=== PATIENT | female | born 1980 | race American Indian/Alaskan Native ===

== ENCOUNTER 2020-05-16 07:59 | Emergency (ER) | payer OTHER ==
[2020-05-16] MEDS ORDERED: SODIUM CHLORIDE 0.9% 1000 ML 1,000 ML ONE (08:43)
[2020-05-16] MEDS ORDERED: ONDANSETRON 4 MG/2 ML INJ ONE (08:43)
[2020-05-16] MEDS ORDERED: ONDANSETRON 4 MG/2 ML INJ IV ONE ×2 (09:03→09:07)
[2020-05-16] MEDS ORDERED: SODIUM CHLORIDE 0.9% 1000 ML 1,000 ML IV ONE (09:03)
[2020-05-16 10:00] LABS: Basophils % (Auto) 0.2 % (0.0-1.8); Eosinophils % (Auto) 0.1 % (0.0-4.3); Hematocrit 42.4 % (30.3-42.9); Lymphocytes # (Auto) 0.7 K/mm3 (1.2-5.4); Lymphocytes % (Auto) 10.2 % (13.4-35.0); Mean Corpuscular HGB Conc 33 % (30-34); Mean Corpuscular Volume 85 fl (79-97); Monocytes # (Auto) 0.7 K/mm3 (0.0-0.8); Monocytes % (Auto) 9.2 % (0.0-7.3); Platelet Count 218 K/mm3 (140-440); Red Blood Count 4.97 M/mm3 (3.65-5.03); Red Cell Distribution Width 15.1 % (13.2-15.2)
[2020-05-16 10:13] LABS: INR 1.05 (0.87-1.13)
[2020-05-16 10:39] LABS: Alanine Aminotransferase 13 units/L (7-56); Albumin 3.9 g/dL (3.9-5); BUN/Creatinine Ratio 10; Blood Urea Nitrogen 9 mg/dL (7-17); Calcium 9.1 mg/dL (8.4-10.2); Hemolysis Index 8
[2020-05-16 10:41] LABS: Bilirubin,Direct < 0.2 mg/dL (0-0.2)
[2020-05-16 11:47] LABS: Amphetamine Screen,Urine Negative; Benzodiazepines Screen,Urine Negative; Cannabinoid Screen,Urine Negative; Cocaine Screen,Urine Negative; Methadone Screen,Urine Negative; Opiate Screen,Urine Negative
[2020-05-16 11:52] LABS: Bacteria,Urine 1+ /HPF (Negative); Bilirubin,Urine NEG (Negative); Blood,Urine SM (Negative); Color,Urine Straw (Yellow); Protein,Urine <15 mg/dL mg/dL (Negative); Urobilinogen,Urine < 2.0 mg/dL (<2.0)
[2020-05-16 12:04] LABS: HCG Qualitative,Urine Negative (Negative); RBC,Urine < 1.0 /HPF (0.0-6.0)
--- NOTE | 2020-05-16 13:51 | Cat Scan Report ---
CT ABDOMEN AND PELVIS WITH CONTRAST INDICATION: Abd pain, hypotensive episode. TECHNIQUE: Axial CT images were obtained through the abdomen and pelvis after 100 cc Omni [address] scans at this location are performed using CT dose reduction for ALARA by means of automated expos ure control. COMPARISON: None available. FINDINGS: LOWER CHEST: Patchy groundglass parenchymal disease is seen within right middle lobe, lingula and bot h lower lobes characteristic for mild COVID bronchopneumonia LIVER: 1.2 cm hemangioma posterior hepatic segment image 51 GALLBLADDER: No significant abnormality. BILE DUCTS: No significant abnormality. PANCREAS: No significant abnormality. SPLEEN: No significant abnormality. ADRENALS: No significant abnormality. RIGHT KIDNEY and URETER: No significant abnormality. LEFT KIDNEY and URETER: No significant abnormality. STOMACH and SMALL BOWEL: No significant abnormality. COLON: No significant abnormality. APPENDIX: Not visualized. No acute inflammatory process PERITONEUM: No free fluid. No free air. No fluid collection. LYMPH NODES: No significant adenopathy. AORTA and ARTERIES: No significant abnormality. IVC and VEINS: No significant abnormality. URINARY BLADDER: No significant abnormality. REPRODUCTIVE ORGANS: Several small uterine fibroids. ADDITIONAL FINDINGS: None. SKELETAL SYSTEM: No significant abnormality. IMPRESSION: 1. Mild COVID bronchopneumonia both lung bases 2. Several small uterine leiomyomas. Signer Name: Fredrick Wallace MD Signed: 05/16/2020 1:47 PM Workstation Name: [id number]
--- NOTE | 2020-05-16 14:09 | Emergency Department Report ---
ED Abdominal Pain HPI - General Chief Complaint: Abdominal Pain Stated Complaint: BODY PAIN, N/V Time Seen by Provider: 05/16/20 08:57 Source: patient Mode of arrival: Wheelchair Limitations: No Limitations - History of Present Illness Initial Comments: This is a 39-year-old female who complains of gastric discomfort and nausea and vomiting. She thinks she does not complain of fever but has not measured her temperature. Her pain was nonradiating and intermittent. At the time of my encounter, she is not complaining of much discomfort. She was hypotensive at the time of arrival. She was given a liter of IV fluid in this readily resolved. She states that she has had normal menses. He does not complain of diarrhea. She drinks minimal alcohol and none recently. She believes that she is dehydrated. She does not complain of any other symptoms. MD Complaint: abdominal pain -: Gradual, hour(s) Location: epigastric Radiation: none Migration to: no migration Severity: moderate Severity scale (0 -10): 0 Quality: aching Consistency: intermittent Improves With: nothing Worsens With: nothing Context: other Associated Symptoms: nausea, vomiting. denies: diarrhea, hematemesis, hematochezia - Related Data Previous Rx's Medication Instructions Recorded Last Taken Type Ondansetron [Zofran Odt] 4 mg PO Q8HR PRN #10 tab.rapdis 05/16/20 Unknown Rx Allergies Allergy/AdvReac Type Severity Reaction Status Date / Time No Known Allergies Allergy Unverified 05/16/20 08:28 ED Review of Systems ROS: Stated complaint: BODY PAIN, N/V Other details as noted in HPI Constitutional: denies: chills, fever (This) Eyes: denies: eye pain, eye discharge, vision change ENT: denies: ear pain, throat pain Respiratory: denies: cough, shortness of breath, wheezing Cardiovascular: denies: chest pain, palpitations Endocrine: no symptoms reported Gastrointestinal: abdominal pain, nausea, vomiting. denies: diarrhea Genitourinary: denies: urgency, dysuria, discharge Musculoskeletal: denies: back pain, joint swelling, arthralgia Skin: denies: rash, lesions Neurological: denies: headache, weakness, paresthesias Psychiatric: denies: anxiety, depression Hematological/Lymphatic: denies: easy bleeding, easy bruising ED Past Medical Hx - Past Medical History Previous Medical History?: Yes Hx Hypertension: Yes - Social History Substance Use Type: None - Medications Home Medications: Home Medications Medication Instructions Recorded Confirmed Last Taken Type Ondansetron [Zofran Odt] 4 mg PO Q8HR PRN #10 tab.rapdis 05/16/20 Unknown Rx ED Physical Exam - General Limitations: No Limitations General appearance: alert, in no apparent distress, obese - Head Head exam: Present: atraumatic, normocephalic - Eye Eye exam: Present: normal appearance - ENT ENT exam: Present: mucous membranes moist - Neck Neck exam: Present: normal inspection - Respiratory Respiratory exam: Present: normal lung sounds bilaterally. Absent: respiratory distress - Cardiovascular Cardiovascular Exam: Present: regular rate, normal rhythm. Absent: systolic murmur, diastolic murmur, rubs, gallop - GI/Abdominal GI/Abdominal exam: Present: soft, normal bowel sounds. Absent: distended, tenderness, guarding, rebound, rigid - Extremities Exam Extremities exam: Present: normal inspection - Back Exam Back exam: Present: normal inspection - Neurological Exam Neurological exam: Present: alert, oriented X3, CN II-XII intact. Absent: refl exes normal - Psychiatric Psychiatric exam: Present: normal affect, normal mood - Skin Skin exam: Present: warm, dry, intact, normal color. Absent: rash ED Course Vital Signs 05/16/20 05/16/20 05/16/20 08:30 09:35 09:46 Temperature 97.3 F L Pulse Rate 89 Respiratory 18 Rate Blood Pressure 94/56 94/56 Blood Pressure 84/49 [Right] O2 Sat by Pulse 98 94 Oximetry 05/16/20 05/16/20 05/16/20 09:47 09:51 10:00 Temperature Pulse Rate 76 Respiratory 20 20 Rate Blood Pressure 106/64 Blood Pressure 94/56 [Right] O2 Sat by Pulse 99 99 100 Oximetry 05/16/20 05/16/20 05/16/20 10:16 10:30 10:46 Temperature Pulse Rate Respiratory Rate Blood Pressure 106/64 94/56 128/80 Blood Pressure [Right] O2 Sat by Pulse 98 99 99 Oximetry - Reevaluation(s) Reevaluation #1: Patient was placed on a bedside commode by nursing staff. She had a normal bowel movement. Thereafter she no longer complained of abdominal discomfort. She was given a liter of IV fluid. Considering her hypotension although she had a benign exam, a CT of the abdomen and pelvis was ordered. This was negative for any abdominal or pelvic pathology but she had lower lobe groundglass opacities consistent with COVID-19. I reexamined the patient again. Her exam was benign her vital signs were stable her pulse oximetry was 99 to 100% on room air. She again verified the complete absence of pulmonary symptoms such as cough, shortness of breath or fever. I did not have the capacity to do a spot Covid test. However, even if positive the patient would not meet criteria for hospitalization. She is advised of the likelihood of Covid infection. She is advised to quarantine. She is advised to follow-up with her primary care physician which she does have or perhaps utilize telemedicine. She is advised of return criteria for COVID-19 infection. 05/16/20 14:11 ED Medical Decision Making - Lab Data Result diagrams: 05/16/20 09:29 05/16/20 09:29 Laboratory Results - last 24 hr 05/16/20 05/16/20 05/16/20 09:29 09:29 09:29 WBC 7.1 RBC 4.97 Hgb 14.0 Hct 42.4 MCV 85 MCH 28 MCHC 33 RDW 15.1 Plt Count 218 Lymph % (Auto) 10.2 L Nelson % (Auto) 9.2 H Eos % (Auto) 0.1 Baso % (Auto) 0.2 Lymph # (Auto) 0.7 L Nelson # (Auto) 0.7 Eos # (Auto) 0.0 Baso # (Auto) 0.0 Seg Neutrophils % 80.3 H Seg Neutrophils # 5.7 PT 13.8 INR 1.05 APTT 34.0 Sodium Potassium Chloride Carbon Dioxide Anion Gap BUN Creatinine Estimated GFR BUN/Creatinine Ratio Glucose Calcium Magnesium Total Bilirubin Direct Bilirubin Indirect Bilirubin AST ALT Alkaline Phosphatase Total Protein Albumin Albumin/Globulin Ratio Lipase HCG, Qual Negative Urine Color Urine Turbidity Urine pH Ur Specific Lynn Urine Protein Urine Glucose (UA) Urine Ketones Urine Blood Urine Nitrite Urine Bilirubin Urine Urobilinogen Ur Leukocyte Esterase Urine WBC (Auto) Urine RBC (Auto) U Epithel Cells (Auto) Urine Bacteria (Auto) Urine HCG, Qual Urine Opiates Screen Urine Methadone Screen Ur Barbiturates Screen Ur Phencyclidine Scrn Ur Amphetamines Screen U Benzodiazepines Scrn Urine Cocaine Screen U Marijuana (THC) Screen Drugs of Abuse Note 05/16/20 05/16/20 05/16/20 09:29 11:18 11:18 WBC RBC Hgb Hct MCV MCH MCHC RDW Plt Count Lymph % (Auto) Nelson % (Auto) Eos % (Auto) Baso % (Auto) Lymph # (Auto) Nelson # (Auto) Eos # (Auto) Baso # (Auto) Seg Neutrophils % Seg Neutrophils # PT INR APTT Sodium 136 L Potassium 3.7 Chloride 99.4 Carbon Dioxide 24 Anion Gap 16 BUN 9 Creatinine 0.9 Estimated GFR > 60 BUN/Creatinine Ratio 10 Glucose 137 H Calcium 9.1 Magnesium 2.20 Total Bilirubin 0.40 Direct Bilirubin < 0.2 Indirect Bilirubin 0.2 AST 20 ALT 13 Alkaline Phosphatase 68 Total Protein 7.7 Albumin 3.9 Albumin/Globulin Ratio 1.0 Lipase 28 HCG, Qual Urine Color Straw Urine Turbidity Clear Urine pH 7.0 Ur Specific Lynn 1.002 L Urine Protein <15 mg/dl Urine Glucose (UA) Neg Urine Ketones Neg Urine Blood Sm Urine Nitrite Neg Urine Bilirubin Neg Urine Urobilinogen < 2.0 Ur Leukocyte Esterase Neg Urine WBC (Auto) 1.0 Urine RBC (Auto) < 1.0 U Epithel Cells (Auto) 3.0 Urine Bacteria (Auto) 1+ Urine HCG, Qual Negative Urine Opiates Screen Negative Urine Methadone Screen Negative Ur Barbiturates Screen Negative Ur Phencyclidine Scrn Negative Ur Amphetamines Screen Negative U Benzodiazepines Scrn Negative Urine Cocaine Screen Negative U Marijuana (THC) Screen Negative Drugs of Abuse Note Disclamer - Radiology Data Radiology results: image reviewed (Radiologist felt that the lower lung findings were classic for early COVID-19 infection. There is no abdominal or pelvic pathology seen.) Critical care attestation.: If time is entered above; I have spent that time in minutes in the direct care of this critically ill patient, excluding procedure time. ED Disposition Clinical Impression: Dehydration, Suspected COVID-19 virus infection Abdominal pain Qualifiers: Abdominal location: epigastric Qualified Code(s): R10.13 - Epigastric pain Disposition: DC-01 TO HOME OR SELFCARE Is pt being admited?: No Does the pt Need Aspirin: No Condition: Stable Instructions: Abdominal Pain (ED), Dehydration, Adult, Abdominal Pain, Adult, COVID-19, COVID-19 Frequently Asked Questions Additional Instructions: You will need to quarantine for the next 2 weeks. I do not have a COVID-19 test available. This can be done at various locations. Your scans suggest that you have an early COVID-19 lung infection. I would not recommend an antibiotic at this time. You should look out for fever chills significant cough or breathing difficulty. If your symptoms worsen or these things occur you would need further medical care. Return to the emergency department as needed. Some people believe that vitamin D, vitamin C and Pepcid might be of assistance. These are [id number] medications. I have written a prescription for nausea medicine as needed. Prescriptions: Ondansetron [Zofran Odt] 4 mg PO Q8HR PRN #10 tab.rapdis PRN Reason: Nausea Referrals: YOBANI PALACIOS [Other] - 3-5 Days Time of Disposition: 14:17
[2020-05-16 15:10] VITALS: BP 132/84
== END 2020-05-16 15:11 | disposition home or self-care (01) ==
LOC: ED 07:59
DX: E86.0 Dehydration (principal); I10 Essential (primary) hypertension; R10.13 Epigastric pain; Z20.828 Contact with and (suspected) exposure to other viral communicable diseases; Z79.899 Other long term (current) drug therapy
CPT/HCPCS: 36415; 74177; 80048; 80076; 80307; 81001; 81025; 83690; 83735; 84703; 85025; 85610; 85730; 96361; 96374; 99284; J2405; J7030; Q9967

== ENCOUNTER 2022-02-21 20:12 | Emergency (ER) | payer OTHER ==
--- NOTE | 2022-02-21 21:28 | XRay Report ---
RIGHT KNEE 4 VIEW(S) INDICATION / CLINICAL INFORMATION: INJURY COMPARISON: None available. FINDINGS: BONES / JOINT(S): No acute fracture or subluxation. Small medial compartment degenerative osteoarthri tis with mild joint space narrowing and small marginal osteophyte. SOFT TISSUES: No significant abnormality. ADDITIONAL FINDINGS: None. IMPRESSION: 1. Mild medial degenerative osteoarthritis without fracture or other acute process. Signer Name: George Pérez MD Signed: 02/21/2022 9:24 PM Workstation Name: [email or web address]
[2022-02-21] MEDS ORDERED: IBUPROFEN 800 MG TAB PO ONE (23:45)
[2022-02-21] MEDS ORDERED: HYDROcodone/ACETAMINOPHEN 5-325 MG TAB PO ONE (23:45)
--- NOTE | 2022-02-21 23:50 | Emergency Department Report ---
ED Lower Extremity HPI - General Chief Complaint: Extremity Injury, Lower Stated Complaint: PAIN RT KNEE Time Seen by Provider: 02/21/22 23:43 Source: patient Mode of arrival: Ambulatory Limitations: No Limitations - History of Present Illness Initial Comments: . 41-year-old female with history of obesity and arthralgia. Patient presents for right knee pain states she twisted her knee 2 days ago stepping on a shoe at home. Now with 5/10 pain exacerbated by weightbearing. Patient states she is partial weightbearing. You walking with a limp. Pain is exacerbated by ambulation. Pain is relieved by nothing tried. Usual flare treated with NSAIDs and rest. There are no abrasions lacerations or bleeding. Patient denies other injury. MD Complaint: knee injury - Related Data Previous Rx's Medication Instructions Recorded Last Taken Type Ondansetron [Zofran Odt] 4 mg PO Q8HR PRN #10 tab.rapdis 05/16/[address] [Voltaren Dr] 75 mg PO TID #30 tablet 02/21/22 Unknown Rx Menthol/Camphor [[place] 1 applicatio TP QID PRN #1 tube 02/22/22 Unknown Rx Ointment] Allergies Allergy/AdvReac Type Severity Reaction Status Date / Time No Known Allergies Allergy Unverified 05/16/20 08:28 ED Review of Systems ROS: Stated complaint: PAIN RT KNEE Other details as noted in HPI Constitutional: denies: chills, fever Eyes: denies: eye pain, eye discharge, vision change ENT: denies: ear pain, throat pain Respiratory: denies: cough, shortness of breath, wheezing Cardiovascular: denies: chest pain, palpitations Endocrine: no symptoms reported Gastrointestinal: denies: abdominal pain, nausea, diarrhea Genitourinary: denies: urgency, dysuria, discharge Musculoskeletal: other (Right anterior medial knee pain) Skin: denies: rash, lesions Neurological: denies: headache, weakness, paresthesias, vertigo Psychiatric: denies: anxiety, depression Hematological/Lymphatic: as per HPI ED Past Medical Hx - Past Medical History Hx Hypertension: Yes - Social History Substance Use Type: None - Medications Home Medications: Home Medications Medication Instructions Recorded Confirmed Last Taken Type Ondansetron [Zofran Odt] 4 mg PO Q8HR PRN #10 tab.rapdis 05/16/[address] [Voltaren Dr] 75 mg PO TID #30 tablet 02/21/22 Unknown Rx Menthol/Camphor [[place] 1 applicatio TP QID PRN #1 tube 02/22/22 Unknown Rx Ointment] ED Physical Exam - General Limitations: No Limitations General appearance: alert, in no apparent distress - Head Head exam: Present: atraumatic, normocephalic - Eye Eye exam: Present: normal appearance, EOMI Pupils: Present: normal accommodation - ENT ENT exam: Present: mucous membranes moist - Neck Neck exam: Present: normal inspection, full ROM. Absent: tenderness - Respiratory Respiratory exam: Present: normal lung sounds bilaterally. Absent: respiratory distress, wheezes, stridor - Cardiovascular Cardiovascular Exam: Present: regular rate, normal rhythm, normal heart sounds. Absent: systolic murmur, diastolic murmur, rubs, gallop - GI/Abdominal GI/Abdominal exam: Present: soft, normal bowel sounds - Rectal Rectal exam: Present: deferred - Extremities Exam Extremities exam: Present: full ROM, normal capillary refill - Expanded Lower Extremity Exam Left Knee exam: Present: full ROM, tenderness (Left anterior medial knee there is no anterior drawer no pop no click patient maintains full knee extension), pain w/ pronation/supination, full knee extension. Absent: swelling, abrasion, laceration, ecchymosis, deformity, crepidus, dislocation, erythema, effusion, posterior draw sign Lower Leg exam: Present: full ROM. Absent: tenderness Ankle exam: Present: full ROM. Absent: tenderness Foot/Toe exam: Present: full ROM. Absent: tenderness Neuro vascular tendon exam: Absent: pulse deficit, motor deficit, sensory deficit, tendon deficit Gait: Positive: observed and limited by pain - Back Exam Back exam: Present: normal inspection, full ROM. Absent: paraspinal tenderness, vertebral tenderness - Neurological Exam Neurological exam: Present: alert, oriented X3 - Psychiatric Psychiatric exam: Present: normal affect, normal mood - Skin Skin exam: Present: warm, dry, intact, normal color. Absent: rash ED Course Vital Signs 02/21/22 20:24 Temperature 98.5 F Pulse Rate 91 H Respiratory 18 Rate Blood Pressure 188/108 O2 Sat by Pulse 99 Oximetry ED Lower Extremity MDM - Radiology Data Radiology results: report reviewed, image reviewed RIGHT KNEE 4 VIEW(S) INDICATION / CLINICAL INFORMATION: INJURY COMPARISON: None available. FINDINGS: BONES / JOINT(S): No acute fracture or subluxation. Small medial compartment degenerative osteoarthritis with mild joint space narrowing and small marginal osteophyte. SOFT TISSUES: No significant abnormality. ADDITIONAL FINDINGS: None. IMPRESSION: 1. Mild medial degenerative osteoarthritis without fracture or other acute process. Signer Name: George Bateman MD Signed: 02/21/2022 9:24 PM Workstation Name: [id number] Transcribed By: Dictated By: GEORGE BATEMAN MD Electronically Authenticated By: GEORGE BATEMAN MD Signed Date/Time: 02/21/222123 DD/ 22 TD/TT: - Medical Decision Making There is no fracture no dislocation no subluxation. Patient is obese. Pain is improved with medication given in ED plan NSAIDs as needed pain, rice therapy, follow-up with orthopedics in 2 to 3 days. Return to emergency department should symptoms worsen. Patient verbalizes agreement and understanding with discharge plan. Patient DC'd home in stable condition at this time. Critical care attestation.: If time is entered above; I have spent that time in minutes in the direct care of this critically ill patient, excluding procedure time. ED Disposition Clinical Impression: Strain of right knee Qualifiers: Encounter type: initial encounter Qualified Code(s): S86.911A - Strain of unspecified muscle(s) and tendon(s) at lower leg level, right leg, initial encounter Disposition: HOME / SELF CARE / HOMELESS Is pt being admited?: No Does the pt Need Aspirin: No Condition: Stable Instructions: How to Use Cold Therapy, Acute Knee Pain, Adult Additional Instructions: Take medications as prescribed, call therapy as directed, knee exercises as directed, follow-up with orthopedics in 2 to 3 days. Return to emergency department should symptoms worsen. Prescriptions: Menthol/Camphor [[place] Ointment] 1 applicatio TP QID PRN #1 tube PRN Reason: pain Diclofenac Dr [Voltaren ] 75 mg PO TID #30 tablet Referrals: GEORGE HARDY MD [Staff Physician] - 3-5 Days Forms: Work/School Release Form(ED) Time of Disposition: 00:02
[2022-02-22 00:43] VITALS: BP 172/89
== END 2022-02-22 00:42 | disposition home or self-care (01) ==
LOC: ED 20:12
DX: S86.911A Strain of unspecified muscle(s) and tendon(s) at lower leg level, right leg, initial encounter (principal); I10 Essential (primary) hypertension; X50.1XXA Overexertion from prolonged static or awkward postures, initial encounter; Y93.89 Activity, other specified; Y92.89 Other specified places as the place of occurrence of the external cause; Y99.8 Other external cause status
CPT/HCPCS: 99283